=== PATIENT | male | born 1985 | race Two or more races ===

== ENCOUNTER 2016-10-04 16:07 | Emergency (ER) | payer OTHER ==
[~2016-10-04] VITALS: Ht 180.3 cm; Wt 83.9 kg
--- NOTE | ~2016-10-04 | CR63 ---
[facility] A Service of [facility] RADIOLOGY TEXT RESULTS PATIENT: MARIBELL DRUMMOND LOCATION: [facility] : [birth year] UNIT #: [id number] AGE: [address]: Cordelia Madera APRN SEX: M ORDER DR: [id number] [facility] [address] [place], [place] [address] [id number] E MR#: [id number] Acc #: [id number] NAME: MARIBELL DRUMMOND : 1985 SEX: M STUDY DATE/TIME: 10/04/2016 16:31 UNIT: CFTX ROOM: STUDY DESCRIPTION: CR Chest 2 View Attending Physician: Cordelia Madera A.P.R.N. Referring Physician: Dae Morales M.D. Ordering Physician: [facility] Primary Care Physician: Dae Morales M.D. MEDICAL IMAGING REPORT This report is preliminary unless electronic signature is present EXAM PA and lateral chest 10/04/2016 HISTORY Cough, congestion, shortness of breath since 10/03/2016. FINDINGS PA and lateral examination of the chest upright shows a good expansion of the parenchyma with a normal distribution of the pulmonary vascularity. There is no indication of congestion, effusion, infiltrate, tumor, or nodular density. The pleural reflections and diaphragmatic contours are normal. The cardiac silhouette and mediastinal anatomy is within normal limits. IMPRESSION Normal chest. Dictated by... Shruthi Wong M.D. THIS IS AN ELECTRONICALLY VERIFIED REPORT Shruthi Wong M.D. at 10/05/2016 8:43 AM IL[facility]/cristy TD: 10/04/2016 22:53 JOB #: [id number] MEDICAL IMAGING REPORT Page 1 of 1 COPY
== END 2016-10-04 17:10 | disposition home or self-care (01) ==
LOC: CFTX 16:07 → CED 16:07 → CFTX 16:57 → CED 16:57 → CFTX 17:10
DX: J06.9 Acute upper respiratory infection, unspecified (principal)
CPT/HCPCS: 71020; 87651; 99283